=== PATIENT | male | born 1985 | race Caucasian/White ===

== ENCOUNTER 2016-05-06 20:23 | Emergency (ER) | payer OTHER ==
--- NOTE | 2016-05-06 22:50 | REPUSA ---
CT of the head Clinical history: trauma. Technique: Multiple axial CT images were obtained through the head without administration of contrast . Findings: The ventricles and sulci are symmetric bilaterally. There is no evidence of acute hemorrhag e or infarct. There is no midline shift, mass effect, or extra-axial fluid collection. The osseous st ructures are unremarkable. The visualized paranasal sinuses and mastoid air cells are clear. Impression: Negative study.
--- NOTE | 2016-05-06 22:50 | REPUSA ---
CT of the cervical spine Clinical history: Pain. Trauma. Technique: Multiple axial CT images were obtained through the cervical spine without administration o f contrast. Coronal and sagittal 3-D reconstructed images were also obtained. Comparison: None. Findings: The cervical vertebral bodies are in satisfactory positioning and alignment. No fractures or dislocat ions are demonstrated. The odontoid process is intact. Intervertebral disc spaces are well-maintained . There is no evidence of facet subluxation. The neural foramen appear grossly patent. The cervical c ranial junction is intact. The cervical spinal canal demonstrates normal caliber and contour without evidence of spinal stenosis. The surrounding soft tissues are within normal limits. Impression: Unremarkable CT examination of the cervical spine.
--- NOTE | 2016-05-06 23:18 | EDDOCDS ---
Nurse's Notes [facility] Name: Pancho Rascon Age: 30 yrs Sex: Male : 1985 Arrival Date: 05/06/2016 Time: 20:23 Bed I7 / 29 Private MD: SRINI SMITH Diagnosis: Laceration without foreign body of scalp-LEFT PARIETAL;Concussion without loss of consciousness Presentation: 05/06 20:26 Presenting complaint: Patient states: that approx 45 mins ago he hit his head on a car ms18 door. Small lac noted to pt's scalp. Pt denies and LOC. This patient has no additional risk factors. Mechanism of Injury: resulted from impacting a hard surface. Adult Sepsis Screening: The patient does not have new or worsening altered mentation. Patient's respiratory rate is less than 22. Systolic blood pressure is greater than 100. Patient has a qSOFA score of 0- Negative Sepsis Screen. Suicide/Homicide risk assessment- the patient denies having any suicidal and/or homicidal ideations and does not present with any other emotional, behavioral or mental health complaints. 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 Transition of care: patient was not received from another setting of care. 20:26 Acuity: SAMARIA Level 4 ms18 20:26 Method Of Arrival: Walkin/Carried/Asstd ms18 Triage Assessment: 20:28 General: Appears in no apparent distress, comfortable, Behavior is appropriate for age, ms18 cooperative. Pain: Location: head Pain currently is 7 out of 10 on a pain scale. Pt Declines HIV testing. Neurological: Level of Consciousness is awake, alert, obeys commands, Oriented to person, place, time, Moves all extremities. Gait is steady, Speech is normal, Reports headache. Respiratory: Airway is patent Respiratory effort is even, unlabored. Derm: Skin is pink, warm & dry. Historical: - Allergies: no known allergies; - Home Meds: 1. none - PMHx: none; - PSHx: Sinus Surgery; Cystectomy; - Social history: Smoking status: Patient states was never smoker of tobacco. No barriers to communication noted, The patient speaks fluent Cameroonian. - Family history: Not pertinent. - : The pt / caregiver states he / she is not on anticoagulants. Home medication list is obtained from the patient. - Exposure Risk Screening:: None identified. Screenin:54 Screening information is obtained from the patient. Fall risk: No risks identified. rs3 Assistance ADL's: requires no assistance with activities of daily living. Abuse/DV Screen: The patient / caregiver reports he/she is: not in a situation that causes fear, pain or injury. Nutritional screening: No deficits noted. Advance Directives: Currently, there is no health care proxy. home support is adequate. Assessment: 21:53 General: Appears in no apparent distress, Behavior is cooperative. Pain: Location: top rs3 of head. Neurological: Level of Consciousness is awake, alert. Respiratory: Airway is patent Respiratory effort is even, unlabored, Respiratory pattern is regular, symmetrical. Derm: laceration Swollen area noted on left frontal area. 22:40 General: Appears in no apparent distress, Behavior is appropriate for age, cooperative, rs3 injured L frontal area cleaned with NS. Skin remains closed/intact. no open skin laceration. not bleeding. waiting on CT results. . 23:15 Reassessment: Patient appears in no apparent distress at this time. Patient states rw1 feeling better. Patient states symptoms have improved. Vital Signs: 20:25 BP 152 / 83; Pulse 68; Resp 18; Temp 97.6(O); Pulse Ox 98% on R/A; Weight 88.9 kg (R); ct3 Height 5 ft. 11 in. (180.34 cm) (R); Pain 5/10; 23:15 BP 143 / 80; Pulse 72; Resp 16; Temp 97.0(O); Pulse Ox 97% on R/A; Pain 4/10; rw1 20:25 Body Mass Index 27.34 (88.90 kg, 180.34 cm) ct3 Vitals: 20:25 Log In Time: May 06, 2016 at 20:23. ct3 Victor M Coma Score: 20:26 Eye Response: spontaneous(4). Verbal Response: oriented(5). Motor Response: obeys ms18 commands(6). Total: 15. ED Course: 20:24 Patient visited by Bonnie Cadena PCA. ct3 20:24 Patient moved to Waiting ct3 20:25 [facility], SRINI is Private Physician. ct3 20:26 Patient moved to Pre RCE ct3 20:28 Triage Initiated ms18 21:11 Patient moved to Triage 1 ttb 21:12 Patient visited by Vanessa Gomez PCA. jb5 21:23 [facility] dt4 21:23 Anthony Shaw DO is Attending Physician. dt4 21:23 Patient visited by Rochelle Adamson PA-C. dt4 21:44 Patient moved to ttb 21:55 Patient visited by Isatu Banks RN. rs3 22:12 Patient name changed from Pancho\S\\S\Rascon\S\ to Pancho\S\Peter\S\Rascon. EDMS 22:15 [facility] [place] Agreement was scanned into [employer] and attached to record. hs2 22:39 Patient visited by Isatu Banks RN. rs3 23:03 [facility]. dt4 23:14 CT Head Without Contrast Returned. EDMS 23:14 CT Spine,Cervical W/o Contrast Returned. EDMS 23:15 Patient visited by Mo Murrell LPN. rw1 23:15 The patient / caregiver is instructed regarding the plan of care and ED course. rw1 23:15 No IV's were initiated during this patient's visit. No procedures done that require rw1 assistance. Order Results: Radiology Order: CT Head Without Contrast Test: CT Head Without Contrast REASON FOR EXAMINATION: HEAD INJURY; ; CT of the head; Clinical history: trauma.; Technique: Multiple axial CT images were obtained through the head without administration of contrast; .; Findings: The ventricles and sulci are symmetric bilaterally. There is no evidence of acute hemorrhag; e or infarct. There is no midline shift, mass effect, or extra-axial fluid collection. The osseous st; ructures are unremarkable. The visualized paranasal sinuses and mastoid air cells are clear.; Impression: Negative study.; ; Radiology Order: CT Spine,Cervical W/o Contrast Test: CT Spine,Cervical W/o Contrast REASON FOR EXAMINATION: HEAD INJURY; ; CT of the cervical spine; Clinical history: Pain. Trauma.; Technique: Multiple axial CT images were obtained through the cervical spine without administration o; f contrast. Coronal and sagittal 3-D reconstructed images were also obtained.; Comparison: None.; Findings:; The cervical vertebral bodies are in satisfactory positioning and alignment. No fractures or dislocat; ions are demonstrated. The odontoid process is intact. Intervertebral disc spaces are well-maintained; . There is no evidence of facet subluxation. The neural foramen appear grossly patent. The cervical c; ranial junction is intact. The cervical spinal canal demonstrates normal caliber and contour without; evidence of spinal stenosis. The surrounding soft tissues are within normal limits.; Impression: Unremarkable CT examination of the cervical spine.; ; Outcome: 23:04 Discharge ordered by Provider. dt4 23:17 Discharge Assessment: Patient awake, alert and oriented x 3. No cognitive and/or rw1 functional deficits noted. Patient verbalized understanding of disposition instructions. patient administered narcotics - no. The following High Risk Discharge criteria are identified: None. Discharged to home ambulatory, with significant other. Condition: stable Condition: improved. Discharge instructions given to patient, Instructed on discharge instructions, follow up and referral plans. Demonstrated understanding of instructions, Pt was receptive of discharge instructions/ teaching. CT Study completed. Property sent home with patient. 23:17 Patient left the ED. rw1 Signatures: Dispatcher [employer] EDMS Vanessa Gomez, NET ARCHITECT NET ARCHITECT jb5 Mo Murrell,READY MIX TRUCK DRIVER READY MIX TRUCK DRIVER rw1 Isatu Banks,MARTHA RN rs3 Bonnie Cadena, NET ARCHITECT NET ARCHITECT ct3 Becka Hernandez RN RN ttb Tschudi, Diane, PA-C PA-C dt4 Elli Rascon RN RN ms18 Pamela Al, Reg Reg hs2 MTDD
--- NOTE | 2016-05-06 23:19 | EDDOCDS ---
Physician Documentation [facility] Name: Pancho Rascon Age: 30 yrs Sex: Male : 1985 Arrival Date: 05/06/2016 Time: 20:23 Bed I7 / 29 Private MD: SRINI SMITH Disposition: 05/06/16 23:04 Discharged to Home/Self Care. Impression: Laceration without foreign body of scalp - LEFT PARIETAL, Concussion without loss of consciousness. - Condition is Stable. - Discharge Instructions: Concussion, Adult, Non-Sutured Laceration. - Medication Reconciliation, Local Pharmacy Hours form. - Follow up: Emergency Department; When: As needed; Reason: Worsening of conditions. [facility]; When: 2 - 3 days; Reason: Wound/Symptom Recheck, Recheck today's complaints, Continuance of care. - Problem is new. - Symptoms have improved. - Notes: THERE WAS NO ABNORMALTIES ON THE CT SCANS TODAY. PLEASE FOLLOW UP WITH YOUR PRIMARY CARE PROVIDER ON MONDAY TO RECHECK YOUR SYMPTOMS. ANY WORSENING SYMPTOMS, PLEASE RETURN TO THE ER. Historical: - Allergies: no known allergies; - Home Meds: 1. none - PMHx: none; - PSHx: Sinus Surgery; Cystectomy; - Social history: Smoking status: Patient states was never smoker of tobacco. No barriers to communication noted, The patient speaks fluent Citizen Of [place]. - Family history: Not pertinent. - : The pt / caregiver states he / she is not on anticoagulants. Home medication list is obtained from the patient. - Exposure Risk Screening:: None identified. Vital Signs: 05/06 20:25 BP 152 / 83; Pulse 68; Resp 18; Temp 97.6(O); Pulse Ox 98% on R/A; Weight 88.9 kg / ct3 195.99 lbs (R); Height 5 ft. 11 in. (180.34 cm) (R); Pain 5/10; 23:15 BP 143 / 80; Pulse 72; Resp 16; Temp 97.0(O); Pulse Ox 97% on R/A; Pain 4/10; rw1 20:25 Body Mass Index 27.34 (88.90 kg, 180.34 cm) ct3 Victor M Coma Score: 20:26 Eye Response: spontaneous(4). Verbal Response: oriented(5). Motor Response: obeys ms18 commands(6). Total: 15. MDM: 21:38 CT Head Without Contrast Ordered. EDMS 21:38 CT Spine,Cervical W/o Contrast Ordered. EDMS 21:47 Financial registration complete. hs2 22:15 [facility] Payment Agreement was scanned into [employer] and attached to record. hs2 Signatures: Dispatcher [employer] EDDC Mo Murrell LPN LPN rw1 Rochelle Adamson PA-C PA-C dt4 Elli Rascon RN RN ms18 Pamela Al, Reg Reg hs2 The chart was reviewed and I authenticate all verbal orders and agree with the evaluation and treatment provided.Attachments: 22:15 [facility] Payment Agreement hs2 MTDD
--- NOTE | 2016-05-09 00:18 | EDDOCDS ---
Physician Documentation [facility] Name: Pancho Rascon Age: 30 yrs Sex: Male : 1985 Arrival Date: 05/06/2016 Time: 20:23 Bed I7 / 29 Private MD: SRINI SMITH Disposition: 05/06/16 23:04 Discharged to Home/Self Care. Impression: Laceration without foreign body of scalp - LEFT PARIETAL, Concussion without loss of consciousness. - Condition is Stable. - Discharge Instructions: Concussion, Adult, Non-Sutured Laceration. - Medication Reconciliation, Local Pharmacy Hours form. - Follow up: Emergency Department; When: As needed; Reason: Worsening of conditions. [facility] When: 2 - 3 days; Reason: Wound/Symptom Recheck, Recheck today's complaints, Continuance of care. - Problem is new. - Symptoms have improved. - Notes: THERE WAS NO ABNORMALTIES ON THE CT SCANS TODAY. PLEASE FOLLOW UP WITH YOUR PRIMARY CARE PROVIDER ON MONDAY TO RECHECK YOUR SYMPTOMS. ANY WORSENING SYMPTOMS, PLEASE RETURN TO THE ER. Historical: - Allergies: no known allergies; - Home Meds: 1. none - PMHx: none; - PSHx: Sinus Surgery; Cystectomy; - Social history: Smoking status: Patient states was never smoker of tobacco. No barriers to communication noted, The patient speaks fluent Polish. - Family history: Not pertinent. - : The pt / caregiver states he / she is not on anticoagulants. Home medication list is obtained from the patient. - Exposure Risk Screening:: None identified. Vital Signs: 05/06 20:25 BP 152 / 83; Pulse 68; Resp 18; Temp 97.6(O); Pulse Ox 98% on R/A; Weight 88.9 kg / ct3 195.99 lbs (R); Height 5 ft. 11 in. (180.34 cm) (R); Pain 5/10; 23:15 BP 143 / 80; Pulse 72; Resp 16; Temp 97.0(O); Pulse Ox 97% on R/A; Pain 4/10; rw1 20:25 Body Mass Index 27.34 (88.90 kg, 180.34 cm) ct3 Victor M Coma Score: 20:26 Eye Response: spontaneous(4). Verbal Response: oriented(5). Motor Response: obeys ms18 commands(6). Total: 15. MDM: 21:38 CT Head Without Contrast Ordered. EDMS 21:38 CT Spine,Cervical W/o Contrast Ordered. EDMS 21:47 Financial registration complete. hs2 22:15 [facility] Payment Agreement was scanned into [employer] and attached to record. hs2 05/07 17:22 Radiology Report was scanned into [employer] and attached to record. kf3 18:25 T-Sheet-- Draft Copy was scanned into [employer] and attached to record. klr Signatures: Dispatcher [employer] EDND Mo Murrell,VP OF MARKETING VP OF MARKETING rw1 Ez Santos, Reg Reg kf3 Rochelle Adamson PA-C PA-C dt4 Elli Rascon RN RN ms18 Pamela Al, Reg Reg hs2 Mary Jane Nguyen klr The chart was reviewed and I authenticate all verbal orders and agree with the evaluation and treatment provided.Attachments: 05/06 22:15 [facility] Payment Agreement hs2 18:25 T-Sheet-- Draft Copy klr Chart Complete MTDD
--- NOTE | 2016-05-09 00:18 | EDDOCDS ---
Physician Documentation [facility] Name: Pancho Rascon Age: 30 yrs Sex: Male : 1985 Arrival Date: 05/06/2016 Time: 20:23 Bed I7 / 29 Private MD: SRINI SMITH Disposition: 05/06/16 23:04 Discharged to Home/Self Care. Impression: Laceration without foreign body of scalp - LEFT PARIETAL, Concussion without loss of consciousness. - Condition is Stable. - Discharge Instructions: Concussion, Adult, Non-Sutured Laceration. - Medication Reconciliation, Local Pharmacy Hours form. - Follow up: Emergency Department; When: As needed; Reason: Worsening of conditions. [facility]; When: 2 - 3 days; Reason: Wound/Symptom Recheck, Recheck today's complaints, Continuance of care. - Problem is new. - Symptoms have improved. - Notes: THERE WAS NO ABNORMALTIES ON THE CT SCANS TODAY. PLEASE FOLLOW UP WITH YOUR PRIMARY CARE PROVIDER ON MONDAY TO RECHECK YOUR SYMPTOMS. ANY WORSENING SYMPTOMS, PLEASE RETURN TO THE ER. Historical: - Allergies: no known allergies; - Home Meds: 1. none - PMHx: none; - PSHx: Sinus Surgery; Cystectomy; - Social history: Smoking status: Patient states was never smoker of tobacco. No barriers to communication noted, The patient speaks fluent Croatian. - Family history: Not pertinent. - : The pt / caregiver states he / she is not on anticoagulants. Home medication list is obtained from the patient. - Exposure Risk Screening:: None identified. Vital Signs: 05/06 20:25 BP 152 / 83; Pulse 68; Resp 18; Temp 97.6(O); Pulse Ox 98% on R/A; Weight 88.9 kg / ct3 195.99 lbs (R); Height 5 ft. 11 in. (180.34 cm) (R); Pain 5/10; 23:15 BP 143 / 80; Pulse 72; Resp 16; Temp 97.0(O); Pulse Ox 97% on R/A; Pain 4/10; rw1 20:25 Body Mass Index 27.34 (88.90 kg, 180.34 cm) ct3 Victor M Coma Score: 20:26 Eye Response: spontaneous(4). Verbal Response: oriented(5). Motor Response: obeys ms18 commands(6). Total: 15. MDM: 21:38 CT Head Without Contrast Ordered. EDMS 21:38 CT Spine,Cervical W/o Contrast Ordered. EDMS 21:47 Financial registration complete. hs2 22:15 [facility] Payment Agreement was scanned into [employer] and attached to record. hs2 05/07 17:22 Radiology Report was scanned into [employer] and attached to record. kf3 18:25 T-Sheet-- Draft Copy was scanned into [employer] and attached to record. klr Signatures: Dispatcher [employer] EDMN Mo Murrell,FIELD PROPERTY LOSS SPECIALIST FIELD PROPERTY LOSS SPECIALIST rw1 Ez Santos, Reg Reg kf3 Rochelle Adamson PA-C PA-C dt4 Elli Rascon RN RN ms18 Pamela Al, Reg Reg hs2 Mary Jane Nguyen klr The chart was reviewed and I authenticate all verbal orders and agree with the evaluation and treatment provided.Attachments: 05/06 22:15 [facility] Payment Agreement hs2 18:25 T-Sheet-- Draft Copy klr Chart Complete MTDD
--- NOTE | 2016-05-09 00:18 | EDDOCDS ---
Nurse's Notes [facility] Name: Pancho Rascon Age: 30 yrs Sex: Male : 1985 Arrival Date: 05/06/2016 Time: 20:23 Bed I7 / 29 Private MD: SRINI SMITH Diagnosis: Laceration without foreign body of scalp-LEFT PARIETAL;Concussion without loss of consciousness Presentation: 05/06 20:26 Presenting complaint: Patient states: that approx 45 mins ago he hit his head on a car ms18 door. Small lac noted to pt's scalp. Pt denies and LOC. This patient has no additional risk factors. Mechanism of Injury: resulted from impacting a hard surface. Adult Sepsis Screening: The patient does not have new or worsening altered mentation. Patient's respiratory rate is less than 22. Systolic blood pressure is greater than 100. Patient has a qSOFA score of 0- Negative Sepsis Screen. Suicide/Homicide risk assessment- the patient denies having any suicidal and/or homicidal ideations and does not present with any other emotional, behavioral or mental health complaints. 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 Transition of care: patient was not received from another setting of care. 20:26 Acuity: SAMARIA Level 4 ms18 20:26 Method Of Arrival: Walkin/Carried/Asstd ms18 Triage Assessment: 20:28 General: Appears in no apparent distress, comfortable, Behavior is appropriate for age, ms18 cooperative. Pain: Location: head Pain currently is 7 out of 10 on a pain scale. Pt Declines HIV testing. Neurological: Level of Consciousness is awake, alert, obeys commands, Oriented to person, place, time, Moves all extremities. Gait is steady, Speech is normal, Reports headache. Respiratory: Airway is patent Respiratory effort is even, unlabored. Derm: Skin is pink, warm & dry. Historical: - Allergies: no known allergies; - Home Meds: 1. none - PMHx: none; - PSHx: Sinus Surgery; Cystectomy; - Social history: Smoking status: Patient states was never smoker of tobacco. No barriers to communication noted, The patient speaks fluent [place]. - Family history: Not pertinent. - : The pt / caregiver states he / she is not on anticoagulants. Home medication list is obtained from the patient. - Exposure Risk Screening:: None identified. Screenin:54 Screening information is obtained from the patient. Fall risk: No risks identified. rs3 Assistance ADL's: requires no assistance with activities of daily living. Abuse/DV Screen: The patient / caregiver reports he/she is: not in a situation that causes fear, pain or injury. Nutritional screening: No deficits noted. Advance Directives: Currently, there is no health care proxy. home support is adequate. Assessment: 21:53 General: Appears in no apparent distress, Behavior is cooperative. Pain: Location: top rs3 of head. Neurological: Level of Consciousness is awake, alert. Respiratory: Airway is patent Respiratory effort is even, unlabored, Respiratory pattern is regular, symmetrical. Derm: laceration Swollen area noted on left frontal area. 22:40 General: Appears in no apparent distress, Behavior is appropriate for age, cooperative, rs3 injured L frontal area cleaned with NS. Skin remains closed/intact. no open skin laceration. not bleeding. waiting on CT results. . 23:15 Reassessment: Patient appears in no apparent distress at this time. Patient states rw1 feeling better. Patient states symptoms have improved. Vital Signs: 20:25 BP 152 / 83; Pulse 68; Resp 18; Temp 97.6(O); Pulse Ox 98% on R/A; Weight 88.9 kg (R); ct3 Height 5 ft. 11 in. (180.34 cm) (R); Pain 5/10; 23:15 BP 143 / 80; Pulse 72; Resp 16; Temp 97.0(O); Pulse Ox 97% on R/A; Pain 4/10; rw1 20:25 Body Mass Index 27.34 (88.90 kg, 180.34 cm) ct3 Vitals: 20:25 Log In Time: May 06, 2016 at 20:23. ct3 Victor M Coma Score: 20:26 Eye Response: spontaneous(4). Verbal Response: oriented(5). Motor Response: obeys ms18 commands(6). Total: 15. ED Course: 20:24 Patient visited by Bonnie Cadena PCA. ct3 20:24 Patient moved to Waiting ct3 20:25 [facility], SRINI is Private Physician. ct3 20:26 Patient moved to Pre RCE ct3 20:28 Triage Initiated ms18 21:11 Patient moved to Triage 1 ttb 21:12 Patient visited by Vanessa Gomez PCA. jb5 21:23 [facility] Adamson [facility] dt4 21:23 Anthony Shaw DO is Attending Physician. dt4 21:23 Patient visited by Rochelle Adamson PA-C. dt4 21:44 Patient moved to ttb 21:55 Patient visited by Isatu Banks RN. rs3 22:12 Patient name changed from Pancho\S\\S\Rascon\S\ to Pancho\S\Peter\S\Rascon. EDMS 22:15 [facility] [place] Payment Agreement was scanned into [employer] and attached to record. hs2 22:39 Patient visited by Isatu Banks RN. rs3 23:03 [facility] dt4 23:14 CT Head Without Contrast Returned. EDMS 23:14 CT Spine,Cervical W/o Contrast Returned. EDMS 23:15 Patient visited by Mo Murrell LPN. rw1 23:15 The patient / caregiver is instructed regarding the plan of care and ED course. rw1 23:15 No IV's were initiated during this patient's visit. No procedures done that require rw1 assistance. 05/07 17:22 Radiology Report was scanned into [employer] and attached to record. kf3 18:25 T-Sheet-- Draft Copy was scanned into [employer] and attached to record. klr Order Results: Radiology Order: CT Head Without Contrast Test: CT Head Without Contrast REASON FOR EXAMINATION: HEAD INJURY; ; CT of the head; Clinical history: trauma.; Technique: Multiple axial CT images were obtained through the head without administration of contrast; .; Findings: The ventricles and sulci are symmetric bilaterally. There is no evidence of acute hemorrhag; e or infarct. There is no midline shift, mass effect, or extra-axial fluid collection. The osseous st; ructures are unremarkable. The visualized paranasal sinuses and mastoid air cells are clear.; Impression: Negative study.; ; Radiology Order: CT Spine,Cervical W/o Contrast Test: CT Spine,Cervical W/o Contrast REASON FOR EXAMINATION: HEAD INJURY; ; CT of the cervical spine; Clinical history: Pain. Trauma.; Technique: Multiple axial CT images were obtained through the cervical spine without administration o; f contrast. Coronal and sagittal 3-D reconstructed images were also obtained.; Comparison: None.; Findings:; The cervical vertebral bodies are in satisfactory positioning and alignment. No fractures or dislocat; ions are demonstrated. The odontoid process is intact. Intervertebral disc spaces are well-maintained; . There is no evidence of facet subluxation. The neural foramen appear grossly patent. The cervical c; ranial junction is intact. The cervical spinal canal demonstrates normal caliber and contour without; evidence of spinal stenosis. The surrounding soft tissues are within normal limits.; Impression: Unremarkable CT examination of the cervical spine.; ; Outcome: 05/06 23:04 Discharge ordered by Provider. dt4 23:17 Discharge Assessment: Patient awake, alert and oriented x 3. No cognitive and/or rw1 functional deficits noted. Patient verbalized understanding of disposition instructions. patient administered narcotics - no. The following High Risk Discharge criteria are identified: None. Discharged to home ambulatory, with significant other. Condition: stable Condition: improved. Discharge instructions given to patient, Instructed on discharge instructions, follow up and referral plans. Demonstrated understanding of instructions, Pt was receptive of discharge instructions/ teaching. CT Study completed. Property sent home with patient. 23:17 Patient left the ED. rw1 Signatures: Dispatcher [employer] EDMS Vanessa Gomez, CIRCUS PERFORMER CIRCUS PERFORMER jb5 Mo Murrell,LOG HAULER LOG HAULER rw1 Ez Santos, Reg Reg kf3 Isatu Banks RN RN rs3 Bonnie Cadena, CIRCUS PERFORMER CIRCUS PERFORMER ct3 Becka Hernandez RN RN ttRochelle Brar, PA-C PA-C dt4 Elli Rascon RN RN ms18 Pamela Al, Reg Reg hs2 Mary Jane Nguyen Chart Complete MTDD
== END 2016-05-06 23:17 | disposition home or self-care (01) ==
LOC: M ED 20:23
DX: S01.01XA Laceration without foreign body of scalp, initial encounter (principal); S06.0X0A Concussion without loss of consciousness, initial encounter; W20.8XXA Other cause of strike by thrown, projected or falling object, initial encounter; Y92.018 Other place in single-family (private) house as the place of occurrence of the external cause; Y93.89 Activity, other specified; Y99.8 Other external cause status